=== PATIENT | male | born 1955 | race Caucasian/White ===

== ENCOUNTER 2021-05-24 17:33 | Emergency (ER) | payer MEDICARE, OTHER, SELFPAY ==
--- NOTE | ~2021-05-24 | XR_ITS ---
EXAMINATION: XR elbow RT min 3V DATE: 05/24/2021 17:52 INDICATION: Right elbow injury and swelling. TECHNIQUE: 4 views of right elbow were obtained. COMPARISON: None. FINDINGS: Bone alignment is normal. No fracture. There is mild elbow joint osteoarthritis. No elbow j oint effusion. There is soft tissue swelling overlying the olecranon, consistent with bursitis. IMPRESSION: 1. Olecranon bursitis. 2. Mild elbow joint osteoarthritis. Reviewed, dictated and finalized at location [facility]
[2021-05-24 17:36] VITALS: BP 163/69; PULSE 51; RESP 20; TEMP 36.1; O2SAT 98
--- NOTE | 2021-05-24 18:03 | ED.UPPEXIN ---
HPI - Extremity Injury (Upper) General Chief Complaint: Extremity Injury, Upper Stated Complaint: right arm injury Time Seen by Provider: 05/24/21 17:46 Source: patient Mode of arrival: ambulatory Limitations: no limitations History of Present Illness HPI narrative: Patient is a 66-year-old male complaining of right elbow swelling and mild pain that started 4 days ago after hitting it against a furniture. Patient denies any other pain or injury. Denies any fever or chills. Denies being in any oral anticoagulants and antiplatelet drugs. Related Data Home Medications Medication Instructions Recorded Confirmed pantoprazole [Protonix] 40 mg PO QAM 05/24/21 05/24/21 Allergies Allergy/AdvReac Type Severity Reaction Status Date / Time No Known Allergies Allergy Verified 05/24/21 17:38 Review of Systems Review of Systems: Per HPI All systems reviewed & are unremarkable except as noted in HPI and below PMFSH Comments Past medical history: None Family history: None Social history: Non-smoker no EtOH or drug use Exam Const: General: no acute distress and alert Orientation/consciousness: patient oriented x3 HENMT: Head: normal to inspection Eyes: Conjunctivae: conjunctivae normal Neck: Neck: normal visual inspection Resp: Effort & Inspection: normal respiratory effort Extrem: Other: Negative for deformity or erythema. Right elbow swelling. Pain on range of motion. Full range of motion. Neurovascular is intact Course Vital Signs Vital signs: Vital Signs Temperature 36.1 C L 05/24/21 17:36 Pulse Rate 51 L 05/24/21 17:36 Respiratory Rate 20 05/24/21 17:36 Blood Pressure 163/69 H 05/24/21 17:36 Pulse Oximetry 98 05/24/21 17:36 Temperature 36.1 C L 05/24/21 17:36 Pulse Rate 51 L 05/24/21 17:36 Respiratory Rate 20 05/24/21 17:36 Blood Pressure 163/69 H 05/24/21 17:36 Pulse Oximetry 98 05/24/21 17:36 Procedures Joint Aspiration/Injection Joint Asp./Inject. 1: Joint Aspiration Date: 05/24/21 Joint Aspiration Time: 19:14 Time Out Performed: Yes Side of body: right Joint Aspirated: elbow Ultrasound Guidance: No Skin Prep: Povidone-Iodine1% Local Anesthetic: lidocaine 1% Amount of anesthesia used (mL): 4 Needle Size Used: 18G Fluid Obtained: bloody Total fluid obtained (mL): 20 Patient Tolerated Procedure: well Complications: none Discharge Plan Discharge Clinical Impression: Bursitis of right elbow Qualifiers: Elbow bursitis location: unspecified Qualified Code(s): M70.31 - Other bursitis of elbow, right elbow Patient Disposition: Home, Self-Care Condition: Improved Instructions: Elbow Bursitis (ED) Prescriptions: No Action pantoprazole [Protonix] 40 mg Tablet,Delayed Release (Dr/Ec) 40 mg PO QAM RF: 0 Follow-up/Referrals: Bradly Arvizu MD [Physician] - 05/26/21 PHYSICIAN NOT ON STAFF,NONSTAFF [Primary Care Provider] - Time of Disposition: 18:15
== END 2021-05-24 19:27 | disposition home or self-care (01) ==
PROVIDERS: Emergency Provider Emergency Medicine
DX: M70.31 Other bursitis of elbow, right elbow (principal)
CPT/HCPCS: 20605; 73080; 99283

== ENCOUNTER 2021-05-25 10:44 | Emergency (ER) | payer MEDICARE, OTHER, SELFPAY ==
[2021-05-25 10:45] VITALS: BP 136/76; PULSE 50; RESP 16; TEMP 36.4; O2SAT 100
--- NOTE | 2021-05-25 12:48 | ED.UPPEXIN ---
HPI - Extremity Injury (Upper) General Chief Complaint: Extremity Injury, Upper Stated Complaint: bursitis Time Seen by Provider: 05/25/21 12:17 Source: patient Mode of arrival: ambulatory Limitations: no limitations History of Present Illness HPI narrative: Patient is a 66-year-old male complaining of right elbow swelling, here for recheck, was seen here yesterday and I did joint fluid aspiration of the right elbow, bloody aspirate, approximately 30 cc was removed. Patient states that he hit his elbow against a furniture a few times this past week and that is when it started swelling. X-ray was done yesterday and showed bursitis. Patient states that the swelling is actually decreased and he is just here for a recheck. Denies any redness, warmth or discharge from the area. Denies any fever or chills. Related Data Home Medications Medication Instructions Recorded Confirmed pantoprazole [Protonix] 40 mg PO QAM 05/24/21 05/24/21 Allergies Allergy/AdvReac Type Severity Reaction Status Date / Time No Known Allergies Allergy Verified 05/24/21 17:38 Review of Systems Review of Systems: Per HPI All systems reviewed & are unremarkable except as noted in HPI and below PMFSH Comments Past medical history: None Family history: Noncontributory Social history: Non-smoker no EtOH or drug use Exam Const: General: no acute distress and alert Orientation/consciousness: patient oriented x3 HENMT: Head: normal to inspection Extrem: Other: Right elbow swelling, negative for erythema, warmth, fluctuance. Full range of motion. Neurovascular is intact. Course Vital Signs Vital signs: Vital Signs Temperature 36.4 C L 05/25/21 10:45 Pulse Rate 50 L 05/25/21 10:45 Respiratory Rate 16 05/25/21 10:45 Blood Pressure 136/76 05/25/21 10:45 Pulse Oximetry 100 05/25/21 10:45 Temperature 36.4 C L 05/25/21 10:45 Pulse Rate 50 L 05/25/21 10:45 Respiratory Rate 16 05/25/21 10:45 Blood Pressure 136/76 05/25/21 10:45 Pulse Oximetry 100 05/25/21 10:45 MDM - Extremity Injury (Upper) MDM Narrative Medical decision making narrative: Advised to follow-up with Ortho and PCP Discharge Plan Discharge Clinical Impression: Bursitis of right elbow Qualifiers: Elbow bursitis location: unspecified Qualified Code(s): M70.31 - Other bursitis of elbow, right elbow Patient Disposition: Home, Self-Care Condition: Stable Instructions: Elbow Bursitis (ED) Prescriptions: No Action pantoprazole [Protonix] 40 mg Tablet,Delayed Release (Dr/Ec) 40 mg PO QAM RF: 0 Follow-up/Referrals: PHYSICIAN NOT ON STAFF,NONSTAFF [Primary Care Provider] - 05/26/21 Time of Disposition: 12:52
== END 2021-05-25 13:18 | disposition home or self-care (01) ==
PROVIDERS: Emergency Provider Emergency Medicine
DX: M70.31 Other bursitis of elbow, right elbow (principal)
CPT/HCPCS: 99281